=== PATIENT | male | born 1980 | race Caucasian/White ===

== ENCOUNTER 2018-09-03 12:01 | Emergency (ER) | payer OTHER ==
[~2018-09-03] VITALS: Ht 182.9 cm; Wt 96.4 kg
[2018-09-03] MEDS ORDERED: SODIUM CHLORIDE FLUSH 10ML SYR IVF ONE (12:30)
[2018-09-03] MEDS ORDERED: ASPIRIN 81 MG TABLET CHEW PO ONE (12:30)
[2018-09-03] MEDS ORDERED: LORazepam 2 MG/ML, 1ML IVPush ONE (12:30)
[2018-09-03] MEDS ORDERED: NITROGLYCERIN SINGLE TAB 0.4 MG SL PRN (12:30)
--- NOTE | 2018-09-03 12:43 | NUR ---
PT HAS BEEN EXPERIENCING CP THAT HAD STARTED OUT INTERMITTENT BUT SINCE THIS MORNING CONTINUOUS. FEELS LIKE SOMEONE PUSHING ON HIS CHEST. DOES NOT RADIATE, NO ACCOMANYING SYMPTOMS
[2018-09-03 12:49] LABS: BASOPHILS # (AUTO) 0.07 x10^3/uL (0-0.1); BASOPHILS % (AUTO) 1 % (0-1); EOSINOPHILS # (AUTO) 0.05 x10^3/uL (0-0.4); EOSINOPHILS % (AUTO) 1 % (1-7); LYMPHOCYTES # (AUTO) 1.23 x10^3/uL (1-3.4); LYMPHOCYTES % (AUTO) 17 % (22-44); MD NO; MEAN CORPUSCULAR HEMOGLOBIN 30.1 pg (27.5-34.5); MEAN CORPUSCULAR HGB CONC 32.1 g/dL (33.2-36.2); MEAN CORPUSCULAR VOLUME 93.6 fL (81-97); MEAN PLATELET VOLUME 7.5 fL (7.4-10.4); MONOCYTES # (AUTO) 0.57 x10^3/uL (0.2-0.8); MONOCYTES % (AUTO) 8 % (2-9); NEUTROPHILS # (AUTO) 5.38 x10^3/uL (1.8-6.8); NEUTROPHILS % (AUTO) 74 % (42-75); PLATELET COUNT 228 x10^3/uL (130-400); RED BLOOD COUNT 5.75 x10^6/uL (4.38-5.82); RED CELL DISTRIBUTION WIDTH 14.2 % (9.4-14.8)
[2018-09-03 13:03] LABS: ANION GAP 12 mmol/L (5-15); CALCIUM 9.4 mg/dL (8.5-10.1); CHLORIDE 107 mmol/L (98-107)
[2018-09-03 13:09] LABS: ALANINE AMINOTRANSFERASE 31 U/L (12-78); ALKALINE PHOSPHATASE 83 U/L (45-117); BILIRUBIN,TOTAL 1.2 mg/dL (0.2-1.0); TOTAL PROTEIN 8.1 g/dL (6.4-8.2); TROPONIN I < 0.015 ng/mL (0.000-0.045)
[2018-09-03] MEDS ORDERED: ASPIRIN 81 MG TABLET CHEW ONE (13:25)
[2018-09-03] MEDS ORDERED: LORazepam 2 MG/ML, 1ML ONE (13:25)
--- NOTE | 2018-09-03 13:42 | NUR ---
CONTINUES TO FEEL LIKE SOMEONE PUSHING ON HIS CHEST. MEDICATED PER ORDERS FOR SAME
--- NOTE | 2018-09-03 13:45 | NUR ---
NO CHANGE IN CP WITH NITRO. WILL CONTINUE TO MONITOR
--- NOTE | 2018-09-03 14:27 | NUR ---
PT STATES CP IMPROVED WITH ATIVAN. CONTINUE TO MONITOR
[2018-09-03 14:28] VITALS: BP 140/89
--- NOTE | 2018-09-03 15:14 | NUR ---
PT CONTINUES TO FEEL BETTER THAN ON ARRIVAL. GIVEN DISCHARGE PAPERS WITH QUESTIONS ANSWERED. AMBULATED TO DISCHARGE WINDOW, STEADY GAIT
== END 2018-09-03 15:16 | disposition home or self-care (01) ==
LOC: ED 14:54
DX: R07.89 Other chest pain (principal); F41.1 Generalized anxiety disorder
CPT/HCPCS: 36415; 71045; 80053; 83690; 84484; 85025; 85379; 93005; 96374; 99284; J2060